=== PATIENT | female | born 1995 | race Native Hawaiian/Other Pacific Islander ===

== ENCOUNTER 2018-05-16 10:51 | Inpatient (IN) | payer OTHER ==
[2018-05-16 10:54] VITALS: BMI 20.5
[2018-05-16] MEDS ORDERED: Sodium Chloride 0.9% 1,000 ML IV STA ×2 (11:42→13:52)
[2018-05-16 12:14] LABS: VENOUS BLOOD GAS BASE EXCESS 2.5 mmol/L (0.0-2.0); VENOUS BLOOD GAS PCO2 53 mmHg (40-60); VENOUS BLOOD GAS PO2 26 mm/Hg (30-55); VENOUS BLOOD PH 7.35 (7.32-7.43)
[2018-05-16 12:16] LABS: BASO % 0.1 % (0.0-2.0); HEMOGLOBIN 12.6 g/dL (12.0-16.0); LYMPH # 0.4 K/uL (1.0-4.3); LYMPH % 3.3 % (20.0-40.0); MEAN CELL VOLUME 85.2 fl (81.0-99.0); MEAN CORPUSCULAR HGB CONC 32.9 g/dL (33.0-37.0); MEAN PLATELET VOLUME 6.9 fl (7.2-11.7); MONO # 0.5 K/uL (0.0-0.8); MONO % 4.6 % (0.0-10.0); NEUT # 10.6 K/uL (1.8-7.0); PLATELET COUNT 227 K/uL (130-400); RED CELL DISTRIBUTION WIDTH 13.1 % (11.5-14.5); WHITE BLOOD COUNT 11.5 K/uL (4.8-10.8)
[2018-05-16 12:18] LABS: INR 1.3; PROTHROMBIN TIME 14.7 Seconds (9.8-13.1)
[2018-05-16 12:21] LABS: ALB/GLOB RATIO 1.4 (1.0-2.1); ALBUMIN 4.3 g/dL (3.5-5.0); ALT/SGPT 20 U/L (9-52); AST/SGOT 18 U/L (14-36); BLOOD UREA NITROGEN 8 mg/dl (7-17); CALCIUM 8.8 mg/dL (8.4-10.2); GFR AFRICAN-AMERICAN > 60; GFR NON-AFRICAN AMERICAN > 60; LIPASE 30 U/L (23-300); PARTIAL THROMBOPLASTIN TIME 28.5 Seconds (25.6-37.1); SQUAMOUS EPITHIAL 3 /hpf (0-5); URINE BACTERIA OCC (<OCC); URINE BILIRUBIN NEGATIVE (NEGATIVE); URINE BLOOD MODERATE (NEGATIVE); URINE CLARITY TURBID (Clear); URINE COLOR YELLOW (YELLOW); URINE GLUCOSE (UA) NEG (Normal); URINE LEUKOCYTE ESTERASE NEG Leu/uL (Negative); URINE PROTEIN 30 mg/dL (NEGATIVE); URINE UROBILINOGEN 0.2-1.0 mg/dL (0.2-1.0)
--- NOTE | 2018-05-16 12:44 | ED PDOC ---
HPI: Abdomen Time Seen by Provider: 05/16/18 11:10 Chief Complaint (Nursing): Abdominal Pain Chief Complaint (Provider): Abdominal pain, NAVARRETE History Per: Patient History/Exam Limitations: no limitations Additional Complaint(s): Pt reports diarrhea X 2 weeks, later with NAVARRETE, subjective fever, sore throat, bilateral ear pain, nausea, vomiting, abdominal pain. Evaluated by Urgent Care and advised to come to ED. Pt states she had colonoscopy in [place] last year and was normal (polyp). Abnormal Vaginal Bleeding: No Past Medical History Reviewed: Nursing Documentation, Vital Signs Vital Signs: Last Vital Signs Temp 99.5 F 05/16/18 11:05 Pulse 103 H 05/16/18 12:28 Resp 19 05/16/18 12:28 BP 90/55 L 05/16/18 12:28 Pulse Ox 98 05/16/18 13:00 - Medical History PMH: No Chronic Diseases - Surgical History Surgical History: No Surg Hx - Family History Family History: Denies: Other - Living Arrangements Living Arrangements: With Friends/Others - Social History Current smoker - smoking cessation education provided: No Alcohol: None - Allergies Allergies/Adverse Reactions: Allergies Allergy/AdvReac Type Severity Reaction Status Date / Time No Known Allergies Allergy Verified 05/16/18 11:05 Review of Systems Constitutional: Negative for: Fever, Weakness, Malaise ENT: Positive for: Ear Pain, Throat Pain. Negative for: Ear Discharge, Nose Pain, Nose Discharge, Nose Congestion, Mouth Pain, Mouth Swelling, Throat Swelling Cardiovascular: Negative for: Chest Pain, Palpitations Respiratory: Negative for: Cough, Shortness of Breath Gastrointestinal: Positive for: Nausea, Vomiting, Abdominal Pain, Diarrhea. Negative for: Hematochezia, Hematemesis Genitourinary Female: Negative for: Dysuria, Hematuria, Vaginal Discharge, Vaginal Bleeding Musculoskeletal: Negative for: Neck Pain, Back Pain Skin: Negative for: Rash, Lesions Neurological: Negative for: Weakness, Numbness, Incoordination, Change in Speech , Confusion, Seizures, Headache, Dizziness Physical Exam - Reviewed Nursing Documentation Reviewed: Yes Vital Signs Reviewed: Yes - Physical Exam Appears: Positive for: Well, No Acute Distress Head Exam: Positive for: ATRAUMATIC, NORMAL INSPECTION Skin: Positive for: Normal Color, Warm, Dry Eye Exam: Positive for: Normal appearance, EOMI, PERRL ENT: Positive for: Pharynx Is (Clear), TM Is/Are (WNL). Negative for: Pharyngeal Erythema, Tonsillar Exudate, Tonsillar Swelling Neck: Positive for: Normal, Painless ROM, Supple Cardiovascular/Chest: Positive for: Tachycardia. Negative for: Irregularly Irregular Respiratory: Positive for: Normal Breath Sounds. Negative for: Rales, Rhonchi, Wheezing Gastrointestinal/Abdominal: Positive for: Bowel Sounds, Soft, Tenderness ( Generalized) Back: Positive for: Normal Inspection Extremity: Positive for: Normal ROM Neurologic/Psych: Positive for: Alert, felt strip finisher II-XII, Oriented - Laboratory Results Result Diagrams: 05/16/18 12:00 05/16/18 12:00 - ECG O2 Sat by Pulse Oximetry: 98 Medical Decision Making Medical Decision Makin yo female with fever, NAVARRETE and diarrhea. - labs - EKG - CXR - CT head - CT abd/pelvis - IVF - Morphine - Zofran Time: [address] RESULTS FINDINGS: HEMORRHAGE: No intracranial hemorrhage. BRAIN: No mass effect or edema. No atrophy or chronic microvascular ischemic changes. VENTRICLES: Unremarkable. No hydrocephalus. CALVARIUM: Unremarkable. PARANASAL SINUSES: Unremarkable as visualized. No significant inflammatory changes. MASTOID AIR CELLS: Unremarkable as visualized. No inflammatory changes. OTHER FINDINGS: None. IMPRESSION: Normal CT of the Head. No intracranial mass, hemorrhage or evidence of acute infarct. Time: 1407 CT ABD/PELVIS RESULTS FINDINGS: LOWER THORAX: Unremarkable. LIVER: Unremarkable. No gross lesion or ductal dilatation. GALLBLADDER AND BILE DUCTS: Unremarkable. PANCREAS: Unremarkable. No gross lesion or ductal dilatation. SPLEEN: Unremarkable. ADRENALS: Unremarkable. No mass. KIDNEYS AND URETERS: Unremarkable. No hydronephrosis. No solid mass. VASCULATURE: Unremarkable. No aortic aneurysm. BOWEL: Moderate hayden colitis. Circumferential mural thickening of the entire colon. No bowel obstruction. No other abnormal bowel loops are identified. APPENDIX: Normal appendix. PERITONEUM: Unremarkable. No free fluid. No free air. LYMPH NODES: Unremarkable. No enlarged lymph nodes. BLADDER: Unremarkable. REPRODUCTIVE: Normal [place] BONES: No acute fracture. OTHER FINDINGS: None. IMPRESSION: Nonspecific pancolitis. No additional abnormality. Disposition - Disposition Forms: [employer] ([place])
[2018-05-16] MEDS ORDERED: Sodium Chloride 0.9% 50 ML IV ONE (13:03)
[2018-05-16] MEDS ORDERED: Iohexol 300 100 ML IJ ONE (13:03)
[2018-05-16 13:37] LABS: BANDS 4 % (0-2); LYMPHOCYTE 5 % (20-50); MONOCYTE 3 % (0-10); NEUTROPHIL 88 % (42-75); PLATELET ESTIMATE NORMAL (NORMAL); TOTAL CELLS COUNTED 100
[2018-05-16 13:38] LABS: ANISOCYTOSIS SLIGHT
--- NOTE | 2018-05-16 14:06 | CT ---
Date of service: 05/16/2018 PROCEDURE: CT HEAD WITHOUT CONTRAST. HISTORY: Headache COMPARISON: None available. TECHNIQUE: Axial computed tomography images were obtained through the head/brain without intravenous contrast. Radiation dose: Total exam DLP = 763.87 mGy-cm. This CT exam was performed using one or more of the following dose reduction techniques: Automated exposure control, adjustment of the mA and/or kV according to patient size, and/or use of iterative reconstruction technique. FINDINGS: HEMORRHAGE: No intracranial hemorrhage. BRAIN: No mass effect or edema. No atrophy or chronic microvascular ischemic changes. VENTRICLES: Unremarkable. No hydrocephalus. CALVARIUM: Unremarkable. PARANASAL SINUSES: Unremarkable as visualized. No significant inflammatory changes. MASTOID AIR CELLS: Unremarkable as visualized. No inflammatory changes. OTHER FINDINGS: None. IMPRESSION: Normal CT of the Head. No intracranial mass, hemorrhage or evidence of acute infarct.
--- NOTE | 2018-05-16 14:18 | CT ---
Date of service: 05/16/2018 PROCEDURE: CT Abdomen and Pelvis with contrast HISTORY: Abd pain, diarrhea COMPARISON: None. TECHNIQUE: Contrast dose: 90 mL Omnipaque 300 Radiation dose: Total exam DLP = 211.70 mGy-cm. This CT exam was performed using one or more of the following dose reduction techniques: Automated exposure control, adjustment of the mA and/or kV according to patient size, and/or use of iterative reconstruction technique. FINDINGS: LOWER THORAX: Unremarkable. LIVER: Unremarkable. No gross lesion or ductal dilatation. GALLBLADDER AND BILE DUCTS: Unremarkable. PANCREAS: Unremarkable. No gross lesion or ductal dilatation. SPLEEN: Unremarkable. ADRENALS: Unremarkable. No mass. KIDNEYS AND URETERS: Unremarkable. No hydronephrosis. No solid mass. VASCULATURE: Unremarkable. No aortic aneurysm. BOWEL: Moderate hayden colitis. Circumferential mural thickening of the entire colon. No bowel obstruction. No other abnormal bowel loops are identified. APPENDIX: Normal appendix. PERITONEUM: Unremarkable. No free fluid. No free air. LYMPH NODES: Unremarkable. No enlarged lymph nodes. BLADDER: Unremarkable. REPRODUCTIVE: Normal [place] BONES: No acute fracture. OTHER FINDINGS: None. IMPRESSION: Nonspecific pancolitis. No additional abnormality.
[2018-05-16] MEDS ORDERED: metroNIDAZOLE 500mg/100ml NS 100 ML IV STA (14:19)
[2018-05-16] MEDS ORDERED: Ciprofloxacin 400mg/200ml D5W 400 MG/200 ML BAG IV STA (14:19)
[2018-05-16] MEDS ORDERED: Ciprofloxacin 400mg/200ml D5W 400 MG/200 ML BAG IVPB ONE (14:24)
[2018-05-16] MEDS ORDERED: metroNIDAZOLE 500mg/100ml NS 100 ML IVPB ONE (14:25)
--- NOTE | 2018-05-16 15:10 | CP.PCM.HP ---
History of Present Illness - History of Present Illness History of Present Illness: 22 yo female with no significant PMH brought in because of fever and chills since 2 days ago. Patient also had increased frequency of urination but no dysuria. She admitted to having watery diarrhea 1-2 times a day for about 2 weeks accompanied with nausea and abdominal pain. Had colonoscopy in [place] last year and was told that test was negative. Present on Admission - Present on Admission Any Indicators Present on Admission: No History of DVT/PE: No History of Uncontrolled Diabetes: No Urinary Catheter: No Decubitus Ulcer Present: No Review of Systems - Review of Systems All systems: reviewed and no additional remarkable complaints except (aside from those mentioned above, 12 point system review were negative by me) Past Patient History - Tetanus Immunizations Tetanus Immunization: Unknown - Past Medical History & Family History Past Medical History?: No - Past Social History Smoking Status: Never Smoked Alcohol: None Drugs: Denies Home Situation {Lives}: With Family - PSYCHIATRIC Hx Substance Use: No - SURGICAL HISTORY Hx Surgeries: No - ANESTHESIA Hx Anesthesia: No Meds Allergies/Adverse Reactions: Allergies Allergy/AdvReac Type Severity Reaction Status Date / Time No Known Allergies Allergy Verified 05/16/18 11:05 Physical Exam - Constitutional Appears: No Acute Distress - Head Exam Head Exam: ATRAUMATIC - Eye Exam Eye Exam: absent: Scleral icterus - ENT Exam ENT Exam: Mucous Membranes Moist - Neck Exam Neck exam: Negative for: Meningismus - Respiratory Exam Respiratory Exam: absent: Rales, Rhonchi, Wheezes, Respiratory Distress - Cardiovascular Exam Cardiovascular Exam: Tachycardia - GI/Abdominal Exam GI & Abdominal Exam: Soft. absent: Tenderness - Rectal Exam Rectal Exam: Deferred - Extremities Exam Extremities exam: Negative for: calf tenderness, pedal edema - Back Exam Back exam: absent: tenderness - Neurological Exam Neurological exam: Alert, Oriented x3 - Psychiatric Exam Psychiatric exam: Normal Affect - Skin Skin Exam: Dry, Intact Results - Vital Signs Recent Vital Signs: Last Vital Signs Temp 99.5 F 05/16/18 11:05 Pulse 103 H 05/16/18 12:28 Resp 19 05/16/18 12:28 BP 90/55 L 05/16/18 12:28 Pulse Ox 98 05/16/18 14:29 - Labs Result Diagrams: 05/16/18 12:00 05/16/18 12:00 Labs: Laboratory Results - last 24 hr 05/16/18 05/16/18 05/16/18 11:55 12:00 12:00 WBC 11.5 H RBC 4.50 Hgb 12.6 Hct 38.4 MCV 85.2 MCH 28.0 MCHC 32.9 L RDW 13.1 Plt Count 227 MPV 6.9 L Neut % (Auto) 92.0 H Lymph % (Auto) 3.3 L [place] % (Auto) 4.6 Eos % (Auto) 0.0 Baso % (Auto) 0.1 Neut # (Auto) 10.6 H Lymph # (Auto) 0.4 L [place] # (Auto) 0.5 Eos # (Auto) 0.0 Baso # (Auto) 0.0 Neutrophils % (Manual) 88 H Band Neutrophils % 4 H Lymphocytes % (Manual) 5 L Monocytes % (Manual) 3 Platelet Estimate Normal Anisocytosis (manual) Slight PT INR APTT pO2 VBG pH VBG pCO2 VBG HCO3 VBG Total CO2 VBG O2 Sat (Calc) VBG Base Excess VBG Potassium Glucose Lactate FiO2 Sodium Potassium Chloride Carbon Dioxide Anion Gap BUN Creatinine Est GFR ( Amer) Est GFR (Non-Af Amer) Random Glucose Calcium Phosphorus 2.7 Magnesium 1.7 Total Bilirubin AST ALT Alkaline Phosphatase Total Protein Albumin Globulin Albumin/Globulin Ratio Lipase Venous Blood Potassium Urine Color Urine Clarity Urine pH Ur Specific [place] Urine Protein Urine Glucose (UA) Urine Ketones Urine Blood Urine Nitrate Urine Bilirubin Urine Urobilinogen Ur Leukocyte Esterase Urine RBC (Auto) Urine Microscopic WBC Ur Squamous Epith Cells Urine Bacteria Grp A Beta Strep Ag Blood Type A POSITIVE Blood Type Confirm Antibody Screen Negative BBK History Checked No verified bt 05/16/18 05/16/18 05/16/18 12:00 12:00 12:00 WBC RBC Hgb Hct MCV MCH MCHC RDW Plt Count MPV Neut % (Auto) Lymph % (Auto) [place] % (Auto) Eos % (Auto) Baso % (Auto) Neut # (Auto) Lymph # (Auto) [place] # (Auto) Eos # (Auto) Baso # (Auto) Neutrophils % (Manual) Band Neutrophils % Lymphocytes % (Manual) Monocytes % (Manual) Platelet Estimate Anisocytosis (manual) PT 14.7 H INR 1.3 APTT 28.5 pO2 VBG pH VBG pCO2 VBG HCO3 VBG Total CO2 VBG O2 Sat (Calc) VBG Base Excess VBG Potassium Glucose Lactate FiO2 Sodium 137 Potassium 4.0 Chloride 102 Carbon Dioxide 26 Anion Gap 13 BUN 8 Creatinine 0.5 L Est GFR ( Amer) > 60 Est GFR (Non-Af Amer) > 60 Random Glucose 114 H Calcium 8.8 Phosphorus Magnesium Total Bilirubin 0.3 AST 18 ALT 20 Alkaline Phosphatase 64 Total Protein 7.3 Albumin 4.3 Globulin 3.0 Albumin/Globulin Ratio 1.4 Lipase 30 Venous Blood Potassium Urine Color Yellow Urine Clarity Turbid Urine pH 5.0 Ur Specific [place] 1.021 Urine Protein 30 Urine Glucose (UA) Neg Urine Ketones Negative Urine Blood Moderate Urine Nitrate Negative Urine Bilirubin Negative Urine Urobilinogen 0.2-1.0 Ur Leukocyte Esterase Neg Urine RBC (Auto) 46 H Urine Microscopic WBC 3 Ur Squamous Epith Cells 3 Urine Bacteria Occ H Grp A Beta Strep Ag Blood Type Blood Type Confirm Antibody Screen BBK History Checked 05/16/18 05/16/18 05/16/18 12:10 12:11 14:27 WBC RBC Hgb Hct MCV MCH MCHC RDW Plt Count MPV Neut % (Auto) Lymph % (Auto) [place] % (Auto) Eos % (Auto) Baso % (Auto) Neut # (Auto) Lymph # (Auto) [place] # (Auto) Eos # (Auto) Baso # (Auto) Neutrophils % (Manual) Band Neutrophils % Lymphocytes % (Manual) Monocytes % (Manual) Platelet Estimate Anisocytosis (manual) PT INR APTT pO2 26 L VBG pH 7.35 VBG pCO2 53 VBG HCO3 25.4 VBG Total CO2 30.9 H VBG O2 Sat (Calc) 23.4 L VBG Base Excess 2.5 H VBG Potassium 4.2 Glucose 115 H Lactate 2.5 H FiO2 21.0 Sodium 134.0 Potassium Chloride 102.0 Carbon Dioxide Anion Gap BUN Creatinine Est GFR ( Amer) Est GFR (Non-Af Amer) Random Glucose Calcium Phosphorus Magnesium Total Bilirubin AST ALT Alkaline Phosphatase Total Protein Albumin Globulin Albumin/Globulin Ratio Lipase Venous Blood Potassium 4.2 Urine Color Urine Clarity Urine pH Ur Specific [place] Urine Protein Urine Glucose (UA) Urine Ketones Urine Blood Urine Nitrate Urine Bilirubin Urine Urobilinogen Ur Leukocyte Esterase Urine RBC (Auto) Urine Microscopic WBC Ur Squamous Epith Cells Urine Bacteria Grp A Beta Strep Ag Negative Blood Type Blood Type Confirm A POSITIVE Antibody Screen BBK History Checked Assessment & Plan - Assessment and Plan (Free Text) Assessment: 22 yo female with no significant PMH brought in because of fever and chills since 2 days ago. Patient also had increased frequency of urination but no dysuria. She admitted to having watery diarrhea 1-2 times a day for about 2 weeks accompanied with nausea and abdominal pain. Had colonoscopy in [place] last year and was told that test was negative. 1. Sepsis blood culture x [address] scan of abdomen showed pancolitis Cipro 400mg IV q 12hrs Flagyl 500mg IV q 8hrs GI consult with Dr Torres
[2018-05-16 15:18] LABS: VENOUS BLOOD GAS BASE EXCESS -1.7 mmol/L (0.0-2.0); VENOUS BLOOD GAS PCO2 50 mmHg (40-60); VENOUS BLOOD GAS PO2 26 mm/Hg (30-55); VENOUS BLOOD PH 7.31 (7.32-7.43)
[2018-05-16] MEDS ORDERED: Sodium Chloride 0.9% 1,000 ML IV SCH ×2 (15:30)
[2018-05-16] MEDS ORDERED: metroNIDAZOLE 500mg/100ml NS 100 ML IVPB SCH (17:00)
--- NOTE | 2018-05-16 19:27 | CP.PCM.CON ---
History of Present Illness - History of Present Illness History of Present Illness: 22 yo female who noted fever and chills with multiple loose bowel movements over past 2 days. Has noted loose bowel movements over the past 2 weeks with BMs about twice a day with nausea and abdominal pain. Patient had colonoscopy in [place] due to mother being diagnosed with colon cancer. She states something was found though not sure what it was and is scheduled next month in [place] for colonoscopy. No fhx of IBD. No other travel. s Review of Systems - Constitutional Constitutional: Chills - EENT Eyes: absent: Blurred Vision Ears: absent: Decreased Hearing - Breasts Breasts: absent: Change in Shape - Cardiovascular Cardiovascular: absent: Chest Pain - Respiratory Respiratory: absent: Dyspnea - Gastrointestinal Gastrointestinal: Abdominal Pain - Genitourinary Genitourinary: absent: Change in Urinary Stream Past Patient History - Tetanus Immunizations Tetanus Immunization: Unknown - Past Medical History & Family History Past Medical History?: No - Past Social History Smoking Status: Never Smoked Alcohol: None Drugs: Denies Home Situation {Lives}: With Family - CARDIAC Hx Cardiac Disorders: No - PULMONARY Hx Respiratory Disorders: No - NEUROLOGICAL Hx Neurological Disorder: No - HEENT Hx HEENT Problems: No - RENAL Hx Chronic Kidney Disease: No - ENDOCRINE/METABOLIC Hx Endocrine Disorders: No - PSYCHIATRIC Hx Substance Use: No - SURGICAL HISTORY Hx Surgeries: No - ANESTHESIA Hx Anesthesia: No Meds Allergies/Adverse Reactions: Allergies Allergy/AdvReac Type Severity Reaction Status Date / Time No Known Allergies Allergy Verified 05/16/18 11:05 - Medications Medications: Current Medications Sodium Chloride (Sodium Chloride 0.9%) 1,000 mls @ 125 mls/hr IV .Q8H JHONNY Ciprofloxacin (Cipro 400mg/200ml Dsw) 400 mg in 200 mls @ 200 mls/hr IVPB Q12 JHONNY PRN Reason: Protocol Metronidazole (Flagyl 500mg/100ml Ns) 100 mls @ 100 mls/hr IVPB Q8 JHONNY PRN Reason: Protocol Physical Exam - Head Exam Head Exam: ATRAUMATIC - Eye Exam Eye Exam: Normal appearance Pupil Exam: PERRL - ENT Exam ENT Exam: Normal Exam - Neck Exam Neck exam: Positive for: Normal Inspection - Respiratory Exam Respiratory Exam: Clear to Auscultation Bilateral - Cardiovascular Exam Cardiovascular Exam: RRR, +S1, +S2 - GI/Abdominal Exam GI & Abdominal Exam: Normal Bowel Sounds, Soft. absent: Distended, Tenderness Results - Vital Signs Recent Vital Signs: Last Vital Signs Temp 98.3 F 05/16/18 18:24 Pulse 84 05/16/18 18:24 Resp 20 05/16/18 18:24 BP 88/55 L 05/16/18 18:24 Pulse Ox 99 05/16/18 18:24 - Labs Result Diagrams: 05/16/18 12:00 05/16/18 12:00 Labs: Laboratory Results - last 24 hr 05/16/18 05/16/18 05/16/18 11:55 12:00 12:00 WBC 11.5 H RBC 4.50 Hgb 12.6 Hct 38.4 MCV 85.2 MCH 28.0 MCHC 32.9 L RDW 13.1 Plt Count 227 MPV 6.9 L Neut % (Auto) 92.0 H Lymph % (Auto) 3.3 L [place] % (Auto) 4.6 Eos % (Auto) 0.0 Baso % (Auto) 0.1 Neut # (Auto) 10.6 H Lymph # (Auto) 0.4 L [place] # (Auto) 0.5 Eos # (Auto) 0.0 Baso # (Auto) 0.0 Neutrophils % (Manual) 88 H Band Neutrophils % 4 H Lymphocytes % (Manual) 5 L Monocytes % (Manual) 3 Platelet Estimate Normal Anisocytosis (manual) Slight PT INR APTT pO2 VBG pH VBG pCO2 VBG HCO3 VBG Total CO2 VBG O2 Sat (Calc) VBG Base Excess VBG Potassium Glucose Lactate FiO2 Sodium Potassium Chloride Carbon Dioxide Anion Gap BUN Creatinine Est GFR ( Amer) Est GFR (Non-Af Amer) Random Glucose Calcium Phosphorus 2.7 Magnesium 1.7 Total Bilirubin AST ALT Alkaline Phosphatase Total Protein Albumin Globulin Albumin/Globulin Ratio Lipase Venous Blood Potassium Urine Color Urine Clarity Urine pH Ur Specific [place] Urine Protein Urine Glucose (UA) Urine Ketones Urine Blood Urine Nitrate Urine Bilirubin Urine Urobilinogen Ur Leukocyte Esterase Urine RBC (Auto) Urine Microscopic WBC Ur Squamous Epith Cells Urine Bacteria Grp A Beta Strep Ag Blood Type A POSITIVE Blood Type Confirm Antibody Screen Negative BBK History Checked No verified bt 05/16/18 05/16/18 05/16/18 12:00 12:00 12:00 WBC RBC Hgb Hct MCV MCH MCHC RDW Plt Count MPV Neut % (Auto) Lymph % (Auto) [place] % (Auto) Eos % (Auto) Baso % (Auto) Neut # (Auto) Lymph # (Auto) [place] # (Auto) Eos # (Auto) Baso # (Auto) Neutrophils % (Manual) Band Neutrophils % Lymphocytes % (Manual) Monocytes % (Manual) Platelet Estimate Anisocytosis (manual) PT 14.7 H INR 1.3 APTT 28.5 pO2 VBG pH VBG pCO2 VBG HCO3 VBG Total CO2 VBG O2 Sat (Calc) VBG Base Excess VBG Potassium Glucose Lactate FiO2 Sodium 137 Potassium 4.0 Chloride 102 Carbon Dioxide 26 Anion Gap 13 BUN 8 Creatinine 0.5 L Est GFR ( Amer) > 60 Est GFR (Non-Af Amer) > 60 Random Glucose 114 H Calcium 8.8 Phosphorus Magnesium Total Bilirubin 0.3 AST 18 ALT 20 Alkaline Phosphatase 64 Total Protein 7.3 Albumin 4.3 Globulin 3.0 Albumin/Globulin Ratio 1.4 Lipase 30 Venous Blood Potassium Urine Color Yellow Urine Clarity Turbid Urine pH 5.0 Ur Specific [place] 1.021 Urine Protein 30 Urine Glucose (UA) Neg Urine Ketones Negative Urine Blood Moderate Urine Nitrate Negative Urine Bilirubin Negative Urine Urobilinogen 0.2-1.0 Ur Leukocyte Esterase Neg Urine RBC (Auto) 46 H Urine Microscopic WBC 3 Ur Squamous Epith Cells 3 Urine Bacteria Occ H Grp A Beta Strep Ag Blood Type Blood Type Confirm Antibody Screen BBK History Checked 05/16/18 05/16/18 05/16/18 12:10 12:11 14:27 WBC RBC Hgb Hct MCV MCH MCHC RDW Plt Count MPV Neut % (Auto) Lymph % (Auto) [place] % (Auto) Eos % (Auto) Baso % (Auto) Neut # (Auto) Lymph # (Auto) [place] # (Auto) Eos # (Auto) Baso # (Auto) Neutrophils % (Manual) Band Neutrophils % Lymphocytes % (Manual) Monocytes % (Manual) Platelet Estimate Anisocytosis (manual) PT INR APTT pO2 26 L VBG pH 7.35 VBG pCO2 53 VBG HCO3 25.4 VBG Total CO2 30.9 H VBG O2 Sat (Calc) 23.4 L VBG Base Excess 2.5 H VBG Potassium 4.2 Glucose 115 H Lactate 2.5 H FiO2 21.0 Sodium 134.0 Potassium Chloride 102.0 Carbon Dioxide Anion Gap BUN Creatinine Est GFR ( Amer) Est GFR (Non-Af Amer) Random Glucose Calcium Phosphorus Magnesium Total Bilirubin AST ALT Alkaline Phosphatase Total Protein Albumin Globulin Albumin/Globulin Ratio Lipase Venous Blood Potassium 4.2 Urine Color Urine Clarity Urine pH Ur Specific [place] Urine Protein Urine Glucose (UA) Urine Ketones Urine Blood Urine Nitrate Urine Bilirubin Urine Urobilinogen Ur Leukocyte Esterase Urine RBC (Auto) Urine Microscopic WBC Ur Squamous Epith Cells Urine Bacteria Grp A Beta Strep Ag Negative Blood Type Blood Type Confirm A POSITIVE Antibody Screen BBK History Checked 05/16/18 15:16 WBC RBC Hgb Hct MCV MCH MCHC RDW Plt Count MPV Neut % (Auto) Lymph % (Auto) [place] % (Auto) Eos % (Auto) Baso % (Auto) Neut # (Auto) Lymph # (Auto) [place] # (Auto) Eos # (Auto) Baso # (Auto) Neutrophils % (Manual) Band Neutrophils % Lymphocytes % (Manual) Monocytes % (Manual) Platelet Estimate Anisocytosis (manual) PT INR APTT pO2 26 L VBG pH 7.31 L VBG pCO2 50 VBG HCO3 22.1 VBG Total CO2 26.7 VBG O2 Sat (Calc) 24.3 L VBG Base Excess -1.7 L VBG Potassium 3.7 Glucose 129 H Lactate 1.9 FiO2 21.0 Sodium 137.0 Potassium Chloride 107.0 Carbon Dioxide Anion Gap BUN Creatinine Est GFR ( Amer) Est GFR (Non-Af Amer) Random Glucose Calcium Phosphorus Magnesium Total Bilirubin AST ALT Alkaline Phosphatase Total Protein Albumin Globulin Albumin/Globulin Ratio Lipase Venous Blood Potassium 3.7 Urine Color Urine Clarity Urine pH Ur Specific [place] Urine Protein Urine Glucose (UA) Urine Ketones Urine Blood Urine Nitrate Urine Bilirubin Urine Urobilinogen Ur Leukocyte Esterase Urine RBC (Auto) Urine Microscopic WBC Ur Squamous Epith Cells Urine Bacteria Grp A Beta Strep Ag Blood Type Blood Type Confirm Antibody Screen BBK History Checked - Imaging and Cardiology CT scan - abdomen Status: Image reviewed by me, Report reviewed by me CT scan - pelvis Status: Image reviewed by me, Report reviewed by me Assessment & Plan (1) Colitis Assessment and Plan: Patient with fever, elevated WBC, and pancolitis on CT. Abx started. Stool cultures sent. Lower endoscopy tomorrow. Maintain IV fluids. Status: Acute
[2018-05-16] MEDS: Sodium Chloride 0.9% 1,000 ML IV SCH (22:24)
[2018-05-16] MEDS: Ciprofloxacin 400mg/200ml D5W 400 MG/200 ML BAG IVPB SCH (22:25)
[2018-05-16] MEDS: metroNIDAZOLE 500mg/100ml NS 100 ML IVPB SCH (22:26)
--- NOTE | 2018-05-16 22:43 | CARD ---
APPROVED REPORT Date of service: 05/16/2018 EKG Measurement Heart [id number] <Conclusion> Sinus tachycardia Possible Left atrial enlargement Borderline ECG
[2018-05-17 05:52] LABS: BASO % 0.3 % (0.0-2.0); EOS % 0.6 % (0.0-4.0); LYMPH # 0.6 K/uL (1.0-4.3); LYMPH % 13.3 % (20.0-40.0); MEAN CELL VOLUME 85.1 fl (81.0-99.0); MEAN CORPUSCULAR HEMOGLOBIN 28.1 pg (27.0-31.0); MEAN PLATELET VOLUME 7.2 fl (7.2-11.7); MONO # 0.4 K/uL (0.0-0.8); NEUT # 3.7 K/uL (1.8-7.0); NEUT % 77.8 % (50.0-75.0); NRBC % 0.1 % (0.0-0.0); RBC 3.57 Mil/uL (3.80-5.20); WHITE BLOOD COUNT 4.8 K/uL (4.8-10.8)
[2018-05-17] MEDS: metroNIDAZOLE 500mg/100ml NS 100 ML IVPB SCH ×3 (06:02→20:30)
[2018-05-17] MEDS: Sodium Chloride 0.9% 1,000 ML IV SCH ×4 (06:05→15:33)
[2018-05-17 06:16] LABS: BLOOD UREA NITROGEN 5 mg/dl (7-17); CALCIUM 7.1 mg/dL (8.4-10.2); GFR AFRICAN-AMERICAN > 60; GFR NON-AFRICAN AMERICAN > 60
[2018-05-17] MEDS ORDERED: Potassium Chloride 20 mEq ER Tab PO ONE (07:24)
--- NOTE | 2018-05-17 07:59 | CP.PCM.PN ---
<Livia Feldmanekah - Last Filed: 05/17/18 13:06> Subjective - Date & Time of Evaluation Date of Evaluation: 05/17/18 Time of Evaluation: 09:00 - Subjective Subjective: Patient is a 22 yo F admitted due to Pancolitis, she was tearful and tired this morning and states she had 3-4 episode of green diarrhea, denies hematochezia, she has a decreased appetite, mild upset stomach, denies vomiting NPO for colonoscopy this morning. wbc 4.8. afebrile this AM. Stool was collected this AM. Currently taking Cipro and Flagyl Patient states she had a colonoscopy done last August in [place] which she was told showed she had a small mass that needed to be followed with a repeat colonoscopy. Patients mother of CRC- age 61. Objective - Vital Signs/Intake and Output Vital Signs (last 24 hours): Temp Pulse Resp BP Pulse Ox 97.7 F 64 18 87/55 L 99 05/17/18 05:00 05/17/18 05:00 05/17/18 05:00 05/17/18 05:00 05/17/18 05:00 - Medications Medications: Current Medications Acetaminophen (Tylenol 325mg Tab) 650 mg PO Q4 PRN PRN Reason: Headache Last Admin: 05/17/18 01:53 Dose: 650 mg Ciprofloxacin (Cipro 400mg/200ml Dsw) 400 mg in 200 mls @ 200 mls/hr IVPB Q12 [facility] PRN Reason: Protocol Last Admin: 05/16/18 22:25 Dose: 200 mls/hr Sodium Chloride (Sodium Chloride 0.9%) 1,000 mls @ 250 mls/hr IV .Q4H JHONNY Last Admin: 05/17/18 06:06 Dose: Not Given Metronidazole (Flagyl 500mg/100ml Ns) 100 mls @ 100 mls/hr IVPB Q8@0600,1400, 2000 J[facility]ONNY PRN Reason: Protocol Last Admin: 05/17/18 06:02 Dose: 100 mls/hr - Labs Labs: 05/17/18 04:20 05/17/18 04:20 PT 14.7 Seconds (9.8-13.1) H 05/16/18 12:00 INR 1.3 05/16/18 12:00 APTT 28.5 Seconds (25.6-37.1) 05/16/18 12:00 - Constitutional Appears: Well, No Acute Distress - Head Exam Head Exam: ATRAUMATIC, NORMAL INSPECTION, NORMOCEPHALIC - Eye Exam Eye Exam: EOMI, Normal appearance - ENT Exam ENT Exam: Mucous Membranes Moist, Normal Exam - Neck Exam Neck Exam: Full ROM - Respiratory Exam Respiratory Exam: Clear to Ausculation Bilateral, NORMAL BREATHING PATTERN - Cardiovascular Exam Cardiovascular Exam: REGULAR RHYTHM, RRR, +S1, +S2 - GI/Abdominal Exam GI & Abdominal Exam: Soft, Normal Bowel Sounds Additional comments: Non tender to palpation - Extremities Exam Extremities Exam: Normal Inspection - Neurological Exam Neurological Exam: Alert, Awake, CN II-XII Intact, Oriented x3 - Psychiatric Exam Additional comments: Tearful Assessment and Plan (1) Colitis Assessment & Plan: - NPO for Colonoscopy this AM - Enema done - Continue Cipro and Flagyl - F/U stool culture for C.Diff - K- 3.4- Repleated - GI consulted- Dr. Torres - If tolerate PO D/C today Status: Acute <Ferdinand Bojorquez D - Last Filed: 05/17/18 16:15> Subjective - Date & Time of Evaluation Time of Evaluation: 16:00 - Subjective Subjective: Patient had colonoscopy with Dr Torres which showed edematous swelling and hyperemia of the entire colon. Multiple biopsies were taken. Patient able to tolerate regular diet post procedure Spoke with Dr Torres and agreed to discharge patient in am. He would like to keep the patient for another night. Objective - Vital Signs/Intake and Output Vital Signs (last 24 hours): Temp Pulse Resp BP Pulse Ox 98.3 F 81 20 96/61 L 98 05/17/18 15:52 05/17/18 15:52 05/17/18 15:52 05/17/18 15:52 05/17/18 15:52 Intake and Output: 05/17/18 05/17/18 06:59 18:59 Intake Total 150 Balance 150 - Medications Medications: Current Medications Acetaminophen (Tylenol 325mg Tab) 650 mg PO Q4 PRN PRN Reason: Headache Last Admin: 05/17/18 01:53 Dose: 650 mg Ciprofloxacin (Cipro 400mg/200ml Dsw) 400 mg in 200 mls @ 200 mls/hr IVPB Q12 [facility] PRN Reason: Protocol Last Admin: 05/17/18 11:29 Dose: 200 mls/hr Metronidazole (Flagyl 500mg/100ml Ns) 100 mls @ 100 mls/hr IVPB Q8@0600,1400, 2000 J[facility] PRN Reason: Protocol Last Admin: 05/17/18 14:43 Dose: 100 mls/hr Sodium Chloride (Sodium Chloride 0.9%) 1,000 mls @ 100 mls/hr IV .Q10H [facility] Last Admin: 05/17/18 15:33 Dose: 100 mls/hr - Labs Labs: 05/17/18 04:20 05/17/18 04:20 PT 14.7 Seconds (9.8-13.1) H 05/16/18 12:00 INR 1.3 05/16/18 12:00 APTT 28.5 Seconds (25.6-37.1) 05/16/18 12:00
--- NOTE | 2018-05-17 08:45 | CP.PCM.PN ---
Subjective - Date & Time of Evaluation Date of Evaluation: 05/17/18 Time of Evaluation: 07:00 - Subjective Subjective: GI progress note for Dr. Torres Pt seen and examined at bedside this AM. Patient had crampy abdominal pain overnight that resolved after an episode of diarrhea, which was green in color, no sign of blood. Patient denies any nausea or vomiting and has no pain at this time. Objective - Vital Signs/Intake and Output Vital Signs (last 24 hours): Temp Pulse Resp BP Pulse Ox 98 F 77 18 93/60 L 99 05/17/18 08:12 05/17/18 08:12 05/17/18 08:12 05/17/18 08:12 05/17/18 08:12 - Medications Medications: Current Medications Acetaminophen (Tylenol 325mg Tab) 650 mg PO Q4 PRN PRN Reason: Headache Last Admin: 05/17/18 01:53 Dose: 650 mg Ciprofloxacin (Cipro 400mg/200ml Dsw) 400 mg in 200 mls @ 200 mls/hr IVPB Q12 [facility]ONNY PRN Reason: Protocol Last Admin: 05/16/18 22:25 Dose: 200 mls/hr Sodium Chloride (Sodium Chloride 0.9%) 1,000 mls @ 250 mls/hr IV .Q4H [facility] Last Admin: 05/17/18 06:06 Dose: Not Given Metronidazole (Flagyl 500mg/100ml Ns) 100 mls @ 100 mls/hr IVPB Q8@0600,1400, 2000 [facility] PRN Reason: Protocol Last Admin: 05/17/18 06:02 Dose: 100 mls/hr - Labs Labs: 05/17/18 04:20 05/17/18 04:20 PT 14.7 Seconds (9.8-13.1) H 05/16/18 12:00 INR 1.3 05/16/18 12:00 APTT 28.5 Seconds (25.6-37.1) 05/16/18 12:00 - Constitutional Appears: Well, Non-toxic, No Acute Distress - Head Exam Head Exam: ATRAUMATIC, NORMOCEPHALIC - Eye Exam Eye Exam: Normal appearance. absent: Conjunctival injection, Scleral icterus - ENT Exam ENT Exam: Mucous Membranes Moist, Normal Oropharynx - Respiratory Exam Respiratory Exam: NORMAL BREATHING PATTERN. absent: Accessory Muscle Use, Respiratory Distress - Cardiovascular Exam Cardiovascular Exam: RRR - GI/Abdominal Exam GI & Abdominal Exam: Soft. absent: Distended, Tenderness - Neurological Exam Neurological Exam: Alert, Awake, Oriented x3 - Psychiatric Exam Psychiatric exam: Normal Affect, Normal Mood - Skin Skin Exam: Dry, Intact, Normal Color, Warm Assessment and Plan - Assessment and Plan (Free Text) Assessment: 22F with 2 weeks of diarrhea and abdominal pain with pancolitis on CT scan Plan: Plan for colonoscopy today NPO today Enemas today until clear output Continue antibiotics Follow up C diff cultures Discussed with Dr. Torres who agrees with above Gabby Carreon PGY2
[2018-05-17] MEDS: Ciprofloxacin 400mg/200ml D5W 400 MG/200 ML BAG IVPB SCH ×2 (11:29→22:16)
[2018-05-17] MEDS ORDERED: Sodium Chloride 0.9% 250 ML IV ONE (12:48)
[2018-05-17] MEDS ORDERED: Propofol 10 mg/ml Inj (20 ML) ONE (13:16)
[2018-05-18 00:25] VITALS: RESP 18
[2018-05-18] MEDS: metroNIDAZOLE 500mg/100ml NS 100 ML IVPB SCH (05:30)
[2018-05-18] MEDS: Sodium Chloride 0.9% 1,000 ML IV SCH ×2 (06:43→09:53)
--- NOTE | 2018-05-18 07:53 | CP.PCM.DIS ---
<GastonDiane - Last Filed: 05/18/18 15:09> Provider - Provider Date of Admission: 05/16/18 14:30 Attending physician: Ferdinand Bojorquez MD Consults: Dr. Torres- GI Time Spent in preparation of Discharge (in minutes): 15 Diagnosis - Discharge Diagnosis (1) Colitis Status: Acute Comment: -Continue Cipro and Flagyl for 1 week. -Follow up with GI as outpt- Dr Torres 1 week. -Maintain adequate PO fluid intake and diet low in dairy, red meat, and fried foods until symptoms have completely resolved. -Stool Cx was negative for O&P, F/u as outpt on C diff serology, Stool culture, and fecal calprotectin results Hospital Course - Lab Results Lab Results: Micro Results 05/16/18 14:27 Throat Group A Strep Throat Culture - Final NO BETA STREP GROUP A ISOLATED. 05/16/18 12:00 Blood Blood Culture - Preliminary NO GROWTH AFTER 24 HOURS Most Recent Lab Values WBC 4.8 K/uL (4.8-10.8) D 05/17/18 04:20 RBC 3.57 Mil/uL (3.80-5.20) L 05/17/18 04:20 Hgb 10.0 g/dL (12.0-16.0) L D 05/17/18 04:20 Hct 30.4 % (34.0-47.0) L 05/17/18 04:20 MCV 85.1 fl (81.0-99.0) 05/17/18 04:20 MCH 28.1 pg (27.0-31.0) 05/17/18 04:20 MCHC 33.0 g/dL (33.0-37.0) 05/17/18 04:20 RDW 13.0 % (11.5-14.5) 05/17/18 04:20 Plt Count 170 K/uL (130-400) 05/17/18 04:20 MPV 7.2 fl (7.2-11.7) 05/17/18 04:20 Neut % (Auto) 77.8 % (50.0-75.0) H 05/17/18 04:20 Lymph % (Auto) 13.3 % (20.0-40.0) L 05/17/18 04:20 [place] % (Auto) 8.0 % (0.0-10.0) 05/17/18 04:20 Eos % (Auto) 0.6 % (0.0-4.0) 05/17/18 04:20 Baso % (Auto) 0.3 % (0.0-2.0) 05/17/18 04:20 Neut # (Auto) 3.7 K/uL (1.8-7.0) 05/17/18 04:20 Lymph # (Auto) 0.6 K/uL (1.0-4.3) L 05/17/18 04:20 [place] # (Auto) 0.4 K/uL (0.0-0.8) 05/17/18 04:20 Eos # (Auto) 0.0 K/uL (0.0-0.7) 05/17/18 04:20 Baso # (Auto) 0.0 K/uL (0.0-0.2) 05/17/18 04:20 Neutrophils % (Manual) 88 % (42-75) H 05/16/18 12:00 Band Neutrophils % 4 % (0-2) H 05/16/18 12:00 Lymphocytes % (Manual) 5 % (20-50) L 05/16/18 12:00 Monocytes % (Manual) 3 % (0-10) 05/16/18 12:00 Platelet Estimate Normal (NORMAL) 05/16/18 12:00 Anisocytosis (manual) Slight 05/16/18 12:00 PT 14.7 Seconds (9.8-13.1) H 05/16/18 12:00 INR 1.3 05/16/18 12:00 APTT 28.5 Seconds (25.6-37.1) 05/16/18 12:00 pO2 26 mm/Hg (30-55) L 05/16/18 15:16 VBG pH 7.31 (7.32-7.43) L 05/16/18 15:16 VBG pCO2 50 mmHg (40-60) 05/16/18 15:16 VBG HCO3 22.1 mmol/L 05/16/18 15:16 VBG Total CO2 26.7 mmol/L (22-28) 05/16/18 15:16 VBG O2 Sat (Calc) 24.3 % (40-65) L 05/16/18 15:16 VBG Base Excess -1.7 mmol/L (0.0-2.0) L 05/16/18 15:16 VBG Potassium 3.7 mmol/L (3.6-5.2) 05/16/18 15:16 Sodium 137.0 mmol/L (132-148) 05/16/18 15:16 Chloride 107.0 mmol/L (98-107) 05/16/18 15:16 Glucose 129 mg/dL (65-105) H 05/16/18 15:16 Lactate 1.9 mmol/L (0.7-2.1) 05/16/18 15:16 FiO2 21.0 % 05/16/18 15:16 Sodium 140 mmol/l (132-148) 05/17/18 04:20 Potassium 3.4 MMOL/L (3.6-5.0) L 05/17/18 04:20 Chloride 113 mmol/L (98-107) H 05/17/18 04:20 Carbon Dioxide 19 mmol/L (22-30) L 05/17/18 04:20 Anion Gap 11 (10-20) 05/17/18 04:20 BUN 5 mg/dl (7-17) L 05/17/18 04:20 Creatinine 0.4 mg/dl (0.7-1.2) L 05/17/18 04:20 Est GFR ( Amer) > 60 05/17/18 04:20 Est GFR (Non-Af Amer) > 60 05/17/18 04:20 Random Glucose 88 mg/dL (65-105) 05/17/18 04:20 Calcium 7.1 mg/dL (8.4-10.2) L 05/17/18 04:20 Phosphorus 2.7 mg/dl (2.5-4.5) 05/16/18 12:00 Magnesium 1.7 MG/DL (1.6-2.3) 05/16/18 12:00 Total Bilirubin 0.3 mg/dl (0.2-1.3) 05/16/18 12:00 AST 18 U/L (14-36) 05/16/18 12:00 ALT 20 U/L (9-52) 05/16/18 12:00 Alkaline Phosphatase 64 U/L (38-126) 05/16/18 12:00 Total Protein 7.3 G/DL (6.3-8.2) 05/16/18 12:00 Albumin 4.3 g/dL (3.5-5.0) 05/16/18 12:00 Globulin 3.0 gm/dL (2.2-3.9) 05/16/18 12:00 Albumin/Globulin Ratio 1.4 (1.0-2.1) 05/16/18 12:00 Lipase 30 U/L (23-300) 05/16/18 12:00 Venous Blood Potassium 3.7 mmol/L (3.6-5.2) 05/16/18 15:16 Urine Color Yellow (YELLOW) 05/16/18 12:00 Urine Clarity Turbid (Clear) 05/16/18 12:00 Urine pH 5.0 (5.0-8.0) 05/16/18 12:00 Ur Specific Magazine 1.021 (1.003-1.030) 05/16/18 12:00 Urine Protein 30 mg/dL (NEGATIVE) 05/16/18 12:00 Urine Glucose (UA) Neg mg/dL (Normal) 05/16/18 12:00 Urine Ketones Negative mg/dL (NEGATIVE) 05/16/18 12:00 Urine Blood Moderate (NEGATIVE) 05/16/18 12:00 Urine Nitrate Negative (NEGATIVE) 05/16/18 12:00 Urine Bilirubin Negative (NEGATIVE) 05/16/18 12:00 Urine Urobilinogen 0.2-1.0 mg/dL (0.2-1.0) 05/16/18 12:00 Ur Leukocyte Esterase Neg Miguel Angel/uL (Negative) 05/16/18 12:00 Urine RBC (Auto) 46 /hpf (0-3) H 05/16/18 12:00 Urine Microscopic WBC 3 /hpf (0-5) 05/16/18 12:00 Ur Squamous Epith Cells 3 /hpf (0-5) 05/16/18 12:00 Urine Bacteria Occ (<OCC) H 05/16/18 12:00 Grp A Beta Strep Ag Negative (NEGATIVE) 05/16/18 14:27 Blood Type A POSITIVE 05/16/18 11:55 Blood Type Confirm A POSITIVE 05/16/18 12:10 Antibody Screen Negative 05/16/18 11:55 BBK History Checked No verified bt 05/16/18 11:55 - Hospital Course Hospital Course: Patient is a 22 yo F admitted on 05/16 due to 2 days of fever and chills as well as 2 weeks of diarrhea, which were accompanied by nausea and abdominal pain. Patient had a colonoscopy done last August in [place] which she was told showed she had a small mass that needed to be followed with a repeat colonoscopy. Patient mother was diagnosed with CRC, no FH of IBD. CT scan abdomen and pelvis showed pancolitis and Cipro and Flagyl were given, GI was consulted- Dr. Torres and repeat colonoscopy was done which showed edematous swelling and hyperemia of entire colon, multiple biopsies were taken, no ulcerations, Patient afebrile today. Stool culture shows no O & P. Patient feels well this morning symptoms have improved, denies abdominal pain, diarrhea, nausea, vomiting, SOB or chest pain. Patient urinating well and tolerating oral intake. Continue outpatient antibiotics Cipro and Flagyl for 1 week, maintain adequate PO fluid intake and diet low in dairy, red meat, and fried foods until symptoms have completely resolved, F/u with GI outpt in 1 week- Dr. Torres. - Date & Time of H&P Date of H&P: 05/16/18 Discharge Exam - Head Exam Head Exam: ATRAUMATIC, NORMAL INSPECTION, NORMOCEPHALIC - Eye Exam Eye Exam: EOMI, Normal appearance, PERRL - ENT Exam ENT Exam: Mucous Membranes Moist - Neck Exam Neck exam: Full Rom - Respiratory Exam Respiratory Exam: NORMAL BREATHING PATTERN - Cardiovascular Exam Cardiovascular Exam: RRR, +S1, +S2 - GI/Abdominal Exam GI & Abdominal Exam: Normal Bowel Sounds Additional comments: Soft, nontender to palpation - Extremities Exam Extremities exam: normal inspection - Neurological Exam Neurological exam: Alert, Oriented x3 Discharge Plan - Discharge Medications Prescriptions: Ciprofloxacin [Cipro] 500 mg PO Q12 #20 tab Metronidazole [Flagyl] 500 mg PO Q8 #30 tablet - Follow Up Plan Condition: STABLE Disposition: HOME/ ROUTINE Patient education suggested?: Yes Instructions: Diarrhea in Adolescents and Adults Additional Instructions: follow up with in 1 week Referrals: Chivo Torres MD [Staff Provider] - <Hafsa Hearn - Last Filed: 05/18/18 15:49> Provider - Provider Date of Admission: 05/16/18 14:30 Attending physician: Ferdinand Bojorquez MD Hospital Course - Lab Results Lab Results: Micro Results 05/16/18 Unknown Stool Ova and Parasite Concentrate Exam - Final 05/16/18 12:00 Blood Blood Culture - Preliminary NO GROWTH AFTER 48 HOURS 05/16/18 12:00 Urine Urine Culture - Preliminary No growth. 05/16/18 14:27 Throat Group A Strep Throat Culture - Final NO BETA STREP GROUP A ISOLATED. Most Recent Lab Values WBC 4.8 K/uL (4.8-10.8) D 05/17/18 04:20 RBC 3.57 Mil/uL (3.80-5.20) L 05/17/18 04:20 Hgb 10.0 g/dL (12.0-16.0) L D 05/17/18 04:20 Hct 30.4 % (34.0-47.0) L 05/17/18 04:20 MCV 85.1 fl (81.0-99.0) 05/17/18 04:20 MCH 28.1 pg (27.0-31.0) 05/17/18 04:20 MCHC 33.0 g/dL (33.0-37.0) 05/17/18 04:20 RDW 13.0 % (11.5-14.5) 05/17/18 04:20 Plt Count 170 K/uL (130-400) 05/17/18 04:20 MPV 7.2 fl (7.2-11.7) 05/17/18 04:20 Neut % (Auto) 77.8 % (50.0-75.0) H 05/17/18 04:20 Lymph % (Auto) 13.3 % (20.0-40.0) L 05/17/18 04:20 [place] % (Auto) 8.0 % (0.0-10.0) 05/17/18 04:20 Eos % (Auto) 0.6 % (0.0-4.0) 05/17/18 04:20 Baso % (Auto) 0.3 % (0.0-2.0) 05/17/18 04:20 Neut # (Auto) 3.7 K/uL (1.8-7.0) 05/17/18 04:20 Lymph # (Auto) 0.6 K/uL (1.0-4.3) L 05/17/18 04:20 [place] # (Auto) 0.4 K/uL (0.0-0.8) 05/17/18 04:20 Eos # (Auto) 0.0 K/uL (0.0-0.7) 05/17/18 04:20 Baso # (Auto) 0.0 K/uL (0.0-0.2) 05/17/18 04:20 Neutrophils % (Manual) 88 % (42-75) H 05/16/18 12:00 Band Neutrophils % 4 % (0-2) H 05/16/18 12:00 Lymphocytes % (Manual) 5 % (20-50) L 05/16/18 12:00 Monocytes % (Manual) 3 % (0-10) 05/16/18 12:00 Platelet Estimate Normal (NORMAL) 05/16/18 12:00 Anisocytosis (manual) Slight 05/16/18 12:00 PT 14.7 Seconds (9.8-13.1) H 05/16/18 12:00 INR 1.3 05/16/18 12:00 APTT 28.5 Seconds (25.6-37.1) 05/16/18 12:00 pO2 26 mm/Hg (30-55) L 05/16/18 15:16 VBG pH 7.31 (7.32-7.43) L 05/16/18 15:16 VBG pCO2 50 mmHg (40-60) 05/16/18 15:16 VBG HCO3 22.1 mmol/L 05/16/18 15:16 VBG Total CO2 26.7 mmol/L (22-28) 05/16/18 15:16 VBG O2 Sat (Calc) 24.3 % (40-65) L 05/16/18 15:16 VBG Base Excess -1.7 mmol/L (0.0-2.0) L 05/16/18 15:16 VBG Potassium 3.7 mmol/L (3.6-5.2) 05/16/18 15:16 Sodium 137.0 mmol/L (132-148) 05/16/18 15:16 Chloride 107.0 mmol/L (98-107) 05/16/18 15:16 Glucose 129 mg/dL (65-105) H 05/16/18 15:16 Lactate 1.9 mmol/L (0.7-2.1) 05/16/18 15:16 FiO2 21.0 % 05/16/18 15:16 Sodium 140 mmol/l (132-148) 05/17/18 04:20 Potassium 3.4 MMOL/L (3.6-5.0) L 05/17/18 04:20 Chloride 113 mmol/L (98-107) H 05/17/18 04:20 Carbon Dioxide 19 mmol/L (22-30) L 05/17/18 04:20 Anion Gap 11 (10-20) 05/17/18 04:20 BUN 5 mg/dl (7-17) L 05/17/18 04:20 Creatinine 0.4 mg/dl (0.7-1.2) L 05/17/18 04:20 Est GFR ( Amer) > 60 05/17/18 04:20 Est GFR (Non-Af Amer) > 60 05/17/18 04:20 Random Glucose 88 mg/dL (65-105) 05/17/18 04:20 Calcium 7.1 mg/dL (8.4-10.2) L 05/17/18 04:20 Phosphorus 2.7 mg/dl (2.5-4.5) 05/16/18 12:00 Magnesium 1.7 MG/DL (1.6-2.3) 05/16/18 12:00 Total Bilirubin 0.3 mg/dl (0.2-1.3) 05/16/18 12:00 AST 18 U/L (14-36) 05/16/18 12:00 ALT 20 U/L (9-52) 05/16/18 12:00 Alkaline Phosphatase 64 U/L (38-126) 05/16/18 12:00 Total Protein 7.3 G/DL (6.3-8.2) 05/16/18 12:00 Albumin 4.3 g/dL (3.5-5.0) 05/16/18 12:00 Globulin 3.0 gm/dL (2.2-3.9) 05/16/18 12:00 Albumin/Globulin Ratio 1.4 (1.0-2.1) 05/16/18 12:00 Lipase 30 U/L (23-300) 05/16/18 12:00 Venous Blood Potassium 3.7 mmol/L (3.6-5.2) 05/16/18 15:16 Urine Color Yellow (YELLOW) 05/16/18 12:00 Urine Clarity Turbid (Clear) 05/16/18 12:00 Urine pH 5.0 (5.0-8.0) 05/16/18 12:00 Ur Specific Magazine 1.021 (1.003-1.030) 05/16/18 12:00 Urine Protein 30 mg/dL (NEGATIVE) 05/16/18 12:00 Urine Glucose (UA) Neg mg/dL (Normal) 05/16/18 12:00 Urine Ketones Negative mg/dL (NEGATIVE) 05/16/18 12:00 Urine Blood Moderate (NEGATIVE) 05/16/18 12:00 Urine Nitrate Negative (NEGATIVE) 05/16/18 12:00 Urine Bilirubin Negative (NEGATIVE) 05/16/18 12:00 Urine Urobilinogen 0.2-1.0 mg/dL (0.2-1.0) 05/16/18 12:00 Ur Leukocyte Esterase Neg Miguel Angel/uL (Negative) 05/16/18 12:00 Urine RBC (Auto) 46 /hpf (0-3) H 05/16/18 12:00 Urine Microscopic WBC 3 /hpf (0-5) 05/16/18 12:00 Ur Squamous Epith Cells 3 /hpf (0-5) 05/16/18 12:00 Urine Bacteria Occ (<OCC) H 05/16/18 12:00 Grp A Beta Strep Ag Negative (NEGATIVE) 05/16/18 14:27 Blood Type A POSITIVE 05/16/18 11:55 Blood Type Confirm A POSITIVE 05/16/18 12:10 Antibody Screen Negative 05/16/18 11:55 BBK History Checked No verified bt 05/16/18 11:55 Attending/Attestation - Attestation I have personally seen and examined this patient.: Yes I have fully participated in the care of the patient.: Yes I have reviewed all pertinent clinical information, including history, physical exam and plan: Yes Notes (Text): 05/18/18 15:48 Seen, examined, and discussed with resident. Agree with findings and plan as above.
[2018-05-18 07:57] VITALS: O2SAT 100
--- NOTE | 2018-05-18 09:37 | CP.PCM.PN ---
Subjective - Date & Time of Evaluation Date of Evaluation: 05/18/18 Time of Evaluation: 08:10 - Subjective Subjective: GI consult note for Dr. Torres Pt seen and examined at bedside this AM. Pt had 2-3 more bowel movements overnight but with more formed consistency, green in color. Denies any nausea or abdominal pain but feels "gassy" Objective - Vital Signs/Intake and Output Vital Signs (last 24 hours): Temp Pulse Resp BP Pulse Ox 97.9 F 80 18 91/56 L 100 05/18/18 07:57 05/18/18 07:57 05/18/18 07:57 05/18/18 07:57 05/18/18 07:57 - Medications Medications: Current Medications Acetaminophen (Tylenol 325mg Tab) 650 mg PO Q4 PRN PRN Reason: Headache Last Admin: 05/17/18 19:31 Dose: 650 mg Ciprofloxacin (Cipro 400mg/200ml Dsw) 400 mg in 200 mls @ 200 mls/hr IVPB Q12 [facility] PRN Reason: Protocol Last Admin: 05/17/18 22:16 Dose: 200 mls/hr Metronidazole (Flagyl 500mg/100ml Ns) 100 mls @ 100 mls/hr IVPB Q8@0600,1400, 2000 [facility] PRN Reason: Protocol Last Admin: 05/18/18 05:30 Dose: 100 mls/hr Sodium Chloride (Sodium Chloride 0.9%) 1,000 mls @ 100 mls/hr IV .Q10H [facility] Last Admin: 05/18/18 06:43 Dose: 100 mls/hr - Labs Labs: 05/17/18 04:20 05/17/18 04:20 PT 14.7 Seconds (9.8-13.1) H 05/16/18 12:00 INR 1.3 05/16/18 12:00 APTT 28.5 Seconds (25.6-37.1) 05/16/18 12:00 - Constitutional Appears: Well, Non-toxic, No Acute Distress - Head Exam Head Exam: ATRAUMATIC, NORMOCEPHALIC - Eye Exam Eye Exam: Normal appearance. absent: Conjunctival injection, Scleral icterus - ENT Exam ENT Exam: Mucous Membranes Moist, Normal Oropharynx - Respiratory Exam Respiratory Exam: NORMAL BREATHING PATTERN. absent: Accessory Muscle Use, Respiratory Distress - GI/Abdominal Exam GI & Abdominal Exam: Soft. absent: Distended, Tenderness, Rebound - Extremities Exam Extremities Exam: absent: Calf Tenderness, Pedal Edema, Tenderness - Neurological Exam Neurological Exam: Alert, Awake, Oriented x3 - Psychiatric Exam Psychiatric exam: Normal Affect, Normal Mood - Skin Skin Exam: Dry, Normal Color, Warm Assessment and Plan - Assessment and Plan (Free Text) Assessment: 22F with infectious enteritis Plan: Pt shows sign of infectious colitis on endoscopy in process of healing and has improvement in symptoms No further GI intervention this admission Will follow up with pathology results Patient is clear for discharge with PO cipro, follow up with Dr. Torres in 1 week, and recommend adequate PO fluid intake and diet low in dairy, red meat, and fried foods until symptoms have completely resolved Discussed and examined with Dr. Brian Carreon, [id number]
[2018-05-18] MEDS: Ciprofloxacin 400mg/200ml D5W 400 MG/200 ML BAG IVPB SCH (09:50)
[2018-05-18 12:14] VITALS: BP 96/63; PULSE 68; TEMP 98.3
== END 2018-05-18 14:22 | disposition home or self-care (01) | DRG 392 ==
LOC: H.ER 10:51 → H.ERHOLD 14:30 → H.TEL 18:13
PROC: 0DBN8ZX Excision of Sigmoid Colon, Via Natural or Artificial Opening Endoscopic, Diagnostic (ICD-10-PCS; 2018-05-17)
PROC: 0DBB8ZX Excision of Ileum, Via Natural or Artificial Opening Endoscopic, Diagnostic (ICD-10-PCS; 2018-05-17)
PROC: 0DBM8ZX Excision of Descending Colon, Via Natural or Artificial Opening Endoscopic, Diagnostic (ICD-10-PCS; 2018-05-17)
PROC: 0DBH8ZX Excision of Cecum, Via Natural or Artificial Opening Endoscopic, Diagnostic (ICD-10-PCS; 2018-05-17)
PROC: 0DBK8ZX Excision of Ascending Colon, Via Natural or Artificial Opening Endoscopic, Diagnostic (ICD-10-PCS; principal; 2018-05-17 15:15)
DX: A09 Infectious gastroenteritis and colitis, unspecified (principal); Z80.0 Family history of malignant neoplasm of digestive organs; H92.03 Otalgia, bilateral; J02.9 Acute pharyngitis, unspecified; R35.0 Frequency of micturition